=== PATIENT | female | born 1995 | race African-American/Black ===

== ENCOUNTER 2021-08-15 14:27 | Emergency (ER) | payer MEDICAID, OTHER ==
[~2021-08-15] VITALS: Ht 162.6 cm; Wt 55.0 kg
[2021-08-15] MEDS ORDERED: CEFTRIAXONE SODIUM 500 MG/VIAL IM ONE (14:45)
[2021-08-15] MEDS ORDERED: METR-167 MT (16:57)
[2021-08-15] MEDS ORDERED: DOXY100C5 MT (16:57)
[2021-08-15 18:11] VITALS: BP 110/81
== END 2021-08-15 18:11 | disposition home or self-care (01) ==
LOC: ER 14:27
DX: N76.0 Acute vaginitis (principal)
CPT/HCPCS: 87210; 96372; 99283; J0696